=== PATIENT | female | born 1955 | race Caucasian/White ===

== ENCOUNTER 2020-04-15 00:02 | Emergency (ER) | payer BC ==
[~2020-04-15] VITALS: Ht 172.7 cm; Wt 63.5 kg
[2020-04-15] MEDS ORDERED: levoFLOXacin 750MG 150 ML IV ONE (00:45)
[2020-04-15] MEDS ORDERED: methylPREDNISolone SOD SUCC 125 MG/2 ML VL IV ONE (00:45)
[2020-04-15] MEDS ORDERED: SODIUM CHLORIDE 0.9% 1,000 ML IV ONE (00:45)
[2020-04-15 01:12] LABS: Basophils # (auto) 0 10 ^3/uL (0-0.2); Basophils % (auto) 0.5 % (0.0-2.0); Eosinophils # (auto) 0.1 10 ^3/uL (0-0.8); Eosinophils % (auto) 1.6 % (0.0-7.0); Hematocrit 42.1 % (36.0-46.0); Hemoglobin 14.5 g/dL (12.2-16.2); Lymphocytes % (auto) 32.3 % (10.0-50.0); Mean Corpuscular Hemoglobin 31.9 pg (28.0-32.0); Mean Corpuscular Hgb Conc. 34.6 g/dL (32.0-36.0); Mean Corpuscular Volume 92.3 fL (80.0-100.0); Monocytes # (auto) 0.5 10 ^3/uL (0-1.3); Monocytes % (auto) 8.5 % (0.0-12.0); Neutrophils # (auto) 3.6 10 ^3/uL (1.6-8.6); Neutrophils % (auto) 57.1 % (37.0-80.0); Nucleated Red Blood Cells % 0.1 %; Platelet Count (auto) 347 10^3/uL (140-450); Red Blood Cells 4.56 10^6/uL (4.0-5.20); Red Cell Distribution Width 13.3 % (11.8-14.3); White Blood Cell 6.3 10^3/uL (4.4-10.8)
[2020-04-15 01:26] LABS: INR 0.99 (0.9-1.15); Partial Thromboplastin Time 26.3 sec (23.0-31.2)
[2020-04-15 01:35] LABS: Albumin 3.4 g/dL (3.4-5.0); Anion Gap 8 (5-15); BUN/Creatinine Ratio 19.5; Blood Urea Nitrogen 15 mg/dL (7-18); Calcium 10.1 mg/dL (8.5-10.1); Carbon Dioxide 26 mmol/L (21-32); Chloride 106 mmol/L (98-107); GFR African American 97 mL/min; GFR Non-African American 80 mL/min; Glucose 95 mg/dL (74-106); Magnesium 2.4 mg/dL (1.6-2.6); Sodium 140 mmol/L (136-145)
[2020-04-15 01:46] LABS: Alanine Aminotransferase 30 U/L (13-56); Alkaline Phosphatase 77 U/L (45-117); Aspartate Aminotransferase 26 U/L (15-37); Bilirubin, Total 0.3 mg/dL (0.2-1.0); Total Protein 7.4 g/dL (6.4-8.2)
[2020-04-15] MEDS ORDERED: POTASSIUM CHL 20 Meq TABLET PO ONE (02:30)
[2020-04-15 03:00] VITALS: BP 145/81
== END 2020-04-15 04:30 | disposition home or self-care (01) ==
LOC: EDBD 00:02 → ER 00:08
DX: J44.1 Chronic obstructive pulmonary disease with (acute) exacerbation (principal); J06.9 Acute upper respiratory infection, unspecified; Z88.0 Allergy status to penicillin; Z88.1 Allergy status to other antibiotic agents; Z20.828 Contact with and (suspected) exposure to other viral communicable diseases
CPT/HCPCS: 36415; 71045; 80053; 83735; 84484; 85025; 85610; 85730; 87426; 93005; 96365; 96375; 99285; J1956; J2930